=== PATIENT | female | born 1940 | race Caucasian/White ===

== ENCOUNTER 2024-11-16 12:54 | Outpatient (AMB) | payer MEDICARE, SELFPAY ==
[2024-11-16 13:06] VITALS: BP 131/76; PULSE 72; RESP 18; TEMP 36.5; O2SAT 95; BMI 30.8
--- NOTE | 2024-11-16 13:06 | GSCOFFNT_ITS ---
[facility]ital [facility] - [facility] 11/16/24 13:06 Height 1.52 m Height Method Stated Weight 71.242 kg Weight Measurement Method Standing Scale BMI 30.8 BP 131/76 H Blood Pressure Source Automatic Cuff Blood Pressure Location Left Upper Arm Position Sitting Respiration 18 Pulse 72 Pulse Source Monitor Temp 97.7 F Temp Source Temporal Artery Scan Pulse Oximetry (%) 95 Oxygen Delivery Method Room Air Med/Allergies Allergies & Medications Allergies NKA* Allergy (Uncoded 11/16/24 13:07) Medication Reconciliation celecoxib 200 mg capsule 200 mg PO QDAY 11/07/23 [History Confirmed 11/16/24] omeprazole 20 mg capsule,delayed release 20 mg PO QDAY 11/07/23 [History Confirmed 11/16/24] simvastatin 10 mg tablet 10 mg PO QDAY 11/07/23 [History Confirmed 11/16/24] MA Intake Visit Data Collection New Patient or Established: Established Patient (seen at [facility] within 3 years) Seen by Clinical Staff ONLY (RN/MA): No Reason for Visit:: HEMORRHOIDS Pain Present Currently: Yes Pain Location: Unable to identify PCP or OBGYN visit in last 3 months: Yes Hx Now: No Do You Feel Safe at Home: Yes Authorities Contacted: N/A Smoking Status Smoking Status: Never smoker Immunization / Flu Flu Vaccine in the Last 12 Months: Yes Flu Vaccine Exclusion Criteria: Already Received Past Medical History Social History SMOKING STATUS: Smoking status: Never smoker ALCOHOL: Alcohol Intake: Never HPI HPI Narrative 84F with HTN, HLD here for follow up of hemorrhoids. Pt was seen last year for the same but she preferred to hold off on surgery at the time; she is now thinking she would like to pursue surgery as she finds it difficult to keep the area clean. Pt states her BMs remain soft without any need for straining, she continues to drink plenty of water and takes metamucil regularly. She has minimal pain/discomfort and states that her last colonoscopy was 10 years ago and she was told she had two polyps PMH: HTN, HLD PSHx: Tonsillectomy Meds: Celecoxib, omeprazole, simvastatin Allergies: NKDA Family hx: No known malignancies ROS Review of Systems Systems Reviewed: All systems reviewed, normal except as documented Objective/Exam General General Appearance: alert, cooperative and well groomed Resp Respiratory exam: Absent respiratory distress Rectal Rectal exam: Present other (mild external hemorrhoids, RUBIO deferred) Assessment & Plan Diagnosis / Problem List (1) Hemorrhoids, external: Status: Acute Assessment & Plan: 84F with healthy bowel habits and longstanding symptomatic hemorrhoids. I explained that while surgery is by no means required it can help her symptoms and is reasonable to pursue in the setting of her healthy habits. I explained benefits/risks including severe pain, hemorrhoid persistence/recurrence, bleeding, infection and difficulty urinating. Additionally because of her h istory of polyps I offered colonoscopy and explained the benefits/risks including bleeding, perforation requiring emergency surgery and the possibility of needing to abort for safety. All questions were answered and pt is agreeable to proceeding, but she prefers not to take Golytely prep so I advised her that she can use miralax prep instead and provided instructions Plan: Screening colonoscopy, THD SatDecember 16 Advanced Care Planning Advance care planning discussed with:: patient Office Procedures GNS Level of Care Nursing/Assessment Patient Status: Established Patient Nursing Assessment/Reassesment: Medication Reconciliation, Update PMH in EMR and Vital Signs Coordination of Care: Complex Care and Chronic Disease 1-5, Consent,records obtained, informed consent, Education Simp Pt/Fam, Results/Orders obtained and Staff clarify orders Established Patient Charge Established Patient Point Assignment: 90 Established Patient Point Charge: EP Level 3 (80-115) Patient Portal Questionaires Social History Tobacco History Smoking Status: Never smoker Alcohol History Alcohol Intake: Never Domestic Abuse History Do You Feel Safe at Home: Yes Review of Systems Report any current symptoms Only answer those that you have currently: Past Medical History Past Medical History Have you ever been diagnosed with any of the following:
== END 2024-11-16 13:42 | disposition home or self-care (01) ==
LOC: HODSRG 12:54
PROVIDERS: PCP Student in an Organized Health Care Education/Training Program; Referring Provider Student in an Organized Health Care Education/Training Program; Supervising Provider Surgery; Visit Provider Surgery
DX: K64.4 Residual hemorrhoidal skin tags (principal); I10 Essential (primary) hypertension; E78.5 Hyperlipidemia, unspecified
CPT/HCPCS: 99213; G0463

== ENCOUNTER 2025-01-06 06:20 | Day surgery (SDC) | payer MEDICARE, SELFPAY ==
--- NOTE | 2025-01-05 06:45 | EKG_ITS ---
[facility] Test Date: 2025-01-05 Pat Name: CHRISTOPHER TANG Department: Room: - Gender: Female Regional Climate Change Analyst: JANKI : 1940 Requested By: Dawood Donald Order Number: [id number] Reading MD: Dawood Donald Measurements Intervals [place] Rate: 66 P: 31 [place]: 99 QRS: 35 QRSD: 86 T: 128 QT: 415 QTc: 435 Interpretive Statements SINUS RHYTHM WITH SHORT [place] INTERVAL NONSPECIFIC T-WAVE ABNORMALITY No previous ECG available for comparison /[id number]/S0/[id number].pdf
[2025-01-05 08:53] VITALS: BMI 29.6
[2025-01-05 09:38] LABS: Basophils % (Auto) 0 % (0-2.5); Eosinophils # (Auto) 0.3 Thou/mm3 (0.0-0.5); Eosinophils % (Auto) 3 % (0-10); Hematocrit 42.6 % (36.0-46.0); Hemoglobin 13.8 g/dL (12.0-16.0); Immature Granulocytes % (Auto) 0 % (0-0); Immature Granulocytes Auto 0.03 Thou/mm3 (0.00-0.00); Lymphocytes # (Auto) 3.2 Thou/mm3 (1.0-4.8); Lymphocytes % (Auto) 33 % (10-50); Mean Corpuscular HGB Conc 32.4 g/dl (31.0-37.0); Mean Corpuscular Hemoglobin 32.7 pg (25.0-35.0); Mean Corpuscular Volume 101 fL (80-100); Monocytes # (Auto) 0.8 Thou/mm3 (0.0-0.8); Monocytes % (Auto) 8 % (0-12); Neutrophils # (Auto) 5.5 Thou/mm3 (1.8-7.7); Neutrophils % (Auto) 56 % (37-80); Nucleated Red Blood Cell % 0 /100 WBC (0); Platelet Count 178 Thou/mm3 (140-440); RDW Standard Deviation 49.9 fL (36.4-46.3); Red Blood Count 4.22 Miln/mm3 (4.00-5.20); White Blood Count 9.8 Thou/mm3 (3.6-11.0)
[2025-01-05 09:59] LABS: Alanine Aminotransferase 15 U/L (10-49); Albumin, Serum 4.4 gm/dL (3.4-4.8); Albumin/Globulin Ratio 1.5 (1.2-2.2); Alkaline Phosphatase 92 U/L (46-116); Anion Gap 9 (7-16); BUN/Creatinine Ratio 14 Ratio (12-20); Bilirubin,Total 0.5 mg/dL (0.3-1.2); Blood Urea Nitrogen 11 mg/dL (9-23); Calcium 9.5 mg/dL (8.3-10.6); Calcium (Corrected) 9.5 mg/dL (8.5-10.1); Carbon Dioxide 29.4 mMol/L (20.0-31.0); Chloride 107 mMol/L (98-107); Creatinine (Component) 0.8 mg/dL (0.6-1.3); Estimated Creatinine Clearance 46.4 mL/min (>60); Globulin 2.9 gm/dL (2.3-3.5); Glucose 91 mg/dL (74-106); Osmolality,Calculated 288 (275-295); Potassium 4.6 mMol/L (3.4-5.1); Sodium 145 mMol/L (136-145); Total Protein 7.3 gm/dL (5.7-8.2); eGFR > 60 See Note
[2025-01-05 10:30] LABS: Partial Thromboplastin Time 26.8 Seconds (22.0-36.0); Prothrombin Time 10.7 Seconds (9.0-12.2)
--- NOTE | 2025-01-05 15:25 | SUR.PREOP ---
Pt notified to come in tomorrow at 0630.
[2025-01-06] VITALS (7 sets, daily range): BP systolic 142–177; BP diastolic 63–87; PULSE 59–90; RESP 12–18; TEMP 36.4–36.7; O2SAT 95–100; BMI 28.9
--- NOTE | 2025-01-06 10:58 | PD.SUROPNT ---
Date of Procedure 01/06/25 Pre Op Diagnosis Symptomatic hemorrhoids Post Op Diagnosis Same Procedure Transanal hemorrhoidal dearterialization Findings Internal hemorrhoids Procedure Description After discussion of risks and benefits, patient was brought to the operating room and after timeout she underwent colonoscopy which will be dictated separately. After colonoscopy patient was transferred to the OR bed, underwent general anesthesia, placed in lithotomy position with proper padding and was prepped and draped in the usual sterile fashion. Transanal hemorrhoidal dearterialization was undertaken at the 1, 3, 5, 7, 9 and 11:00 positions. At the 9 o'clock position there was redundant anal mucosal tissue which was pexied. Left and right pudendal nerve blocks were performed as well as a local block for total of 30 cc of half percent Marcaine. There were no signs of bleeding. Patient was returned to supine position and extubated without complication. She was brought to PACU in stable condition Pathology / specimen None Estimated Blood Loss 10 Surgeon Zaira Carranza MD Surgical Staff Operation Date: 01/06/25 08:45 Case Staff Anesthesiologist: Dawood Donald
--- NOTE | 2025-01-06 11:01 | SUR.PHASEI ---
1101 Patient arrived to recovery resting comfortably in [facility], on oxygen 4L via nasal cannula, breathing unlabored, vital signs stable, denies pain, dressing intact to buttock; abd, mesh underwear, no bleeding noted, denies nausea, report received from Jenna MADISON/Neil MADISON and Dr. Donald
--- NOTE | 2025-01-06 12:00 | SUR.PHASEII ---
1200 Patient meets discharge criteria from recovery, awake and alert, breathing unlabored, vital signs stable, denies pain, dressing intact; no bleeding noted, patient ate two jello's and drinking water; denies nausea, patient able to dress herself into her clothing, discharge instructions given to patient and patients friend, friend signed discharge instructions. Patient given all her belongings prior to discharge, transported via wheelchair and left in a private vehicle.
== END 2025-01-06 12:00 | disposition home or self-care (01) ==
PROVIDERS: Anesthesiology; PCP Student in an Organized Health Care Education/Training Program; Referring Provider Surgery; Visit Provider Surgery
PROC: (CPT 46948; principal; 2025-01-06 08:45)
PROC: 0DJD8ZZ Inspection of Lower Intestinal Tract, Via Natural or Artificial Opening Endoscopic (ICD-10-PCS; CPT 45378; 2025-01-06 08:45)
DX: K64.8 Other hemorrhoids (principal); Z01.810 Encounter for preprocedural cardiovascular examination; E78.5 Hyperlipidemia, unspecified; I10 Essential (primary) hypertension
CPT/HCPCS: 46948; 45378; 36415; 80053; 85025; 85610; 85730; 93005; A4217; A4649; J1100; J2704; J2765; J3010; J3490

== ENCOUNTER → 2025-01-19 | Outpatient (CLI) | payer MEDICARE, SELFPAY ==
--- NOTE | 2025-01-19 12:37 | XR_ITS ---
Examination: AP pelvis single view TECHNIQUE: AP portable supine pelvis single view Date and time: January 19, 2025, 1239 hours INDICATIONS: Right hip pain several years. FINDINGS: No right hip fracture or dislocation Moderate right hip osteoarthritis Mild left hip osteoarthritis Bones of the pelvis intact IMPRESSION: Moderate right hip osteoarthritis
--- NOTE | 2025-01-19 12:37 | XR_ITS ---
Examination: Lumbar spine, 5 views Technique: Lumbar spine AP, lateral, coned lateral lower lumbar spine, bilateral obliques 5 views Exam date and time: January 19, 2025 1239 hours Comparison May 08, 2022 INDICATIONS: Low back pain several years. FINDINGS: Lower lumbar dextroscoliosis 10 degrees Severe osteopenia Advanced diffuse facet arthropathy Chronic osteoporotic compression L1 T12 No acute lumbar fracture Advanced diffuse lumbar degenerative disc disease IMPRESSION: Advanced diffuse lumbar degenerative disc disease with significant spinal stenosis
== END | disposition home or self-care (01) ==
LOC: CDIM 12:25
PROVIDERS: PCP Family Medicine; Referring Provider Orthopaedic Surgery; Visit Provider Orthopaedic Surgery
DX: M16.11 Unilateral primary osteoarthritis, right hip (principal); M51.369 Other intervertebral disc degeneration, lumbar region without mention of lumbar back pain or lower extremity pain; M48.061 Spinal stenosis, lumbar region without neurogenic claudication
CPT/HCPCS: 72110; 72170

== ENCOUNTER 2025-01-25 08:52 | Outpatient (AMB) | payer MEDICARE, SELFPAY ==
[2025-01-25 09:08] VITALS: BP 129/73; PULSE 80; RESP 18; TEMP 36.3; O2SAT 96; BMI 29.8
--- NOTE | 2025-01-25 09:08 | PD.GSCLVISIT ---
Vital Signs - [facility] 01/25/25 09:08 Height 1.55 m Height Method Stated Weight 71.753 kg Weight Measurement Method Standing Scale BMI 29.8 BP 129/73 Blood Pressure Source Automatic Cuff Blood Pressure Location Left Upper Arm Position Sitting Respiration 18 Pulse 80 Pulse Source Monitor Temp 97.3 F Temp Source Temporal Artery Scan Pulse Oximetry (%) 96 Oxygen Delivery Method Room Air Med/Allergies Allergies & Medications Allergies No Known Allergies Allergy (Verified 01/25/25 09:09) Medication Reconciliation celecoxib 200 mg capsule 200 mg PO QDAY PRN pain 11/07/23 [History Confirmed 01/25/25] omeprazole 20 mg capsule,delayed release 20 mg PO QDAY 11/07/23 [History Confirmed 01/25/25] simvastatin 10 mg tablet 10 mg PO QDAY 11/07/23 [History Confirmed 01/25/25] cetirizine 10 mg tablet 10 mg PO DAILY PRN allergy symptoms 01/05/25 [History Confirmed 01/25/25] naproxen 250 mg tablet 250 mg PO BID PRN pain 01/05/25 [History Confirmed 01/25/25] docusate sodium 100 mg capsule (Colace) 100 mg PO QDAY PRN constipation #30 caps 01/06/25 [Rx Confirmed 01/25/25] oxycodone-acetaminophen 5 mg-325 mg tablet (Percocet) 1 tab PO Q4H PRN pain #30 tabs 01/06/25 [Rx Confirmed 01/25/25] MA Intake Visit Data Collection New Patient or Established: Established Patient (seen at [facility] within 3 years) Seen by Clinical Staff ONLY (RN/MA): No Reason for Visit:: FOLLOW UP COLONOSCOPY Pain Present Currently: No PCP or OBGYN visit in last 3 months: Yes Smoking Status Smoking Status: Former smoker Immunization / Flu Flu Vaccine in the Last 12 Months: No Flu Vaccine Exclusion Criteria: No Exclusion Criteria Past Medical History Past Medical History NEUROLOGIC: Negative Neurological Disorders or Seizures CARDIAC: Positive Cardiac Disorders and Congestive Heart Failure RESPIRATORY: Negative Chronic Obstructive Pulmonary Disease (COPD) GASTROINTESTINAL: Positive Gastrointestinal Disorders, Hemorrhoids and Gastroesophageal Reflux Disease; Negative Hepatitis GENITOURINARY: Negative Genitourinary Disorders or Renal Disease REPRODUCTIVE: Positive Previous Pregnancies (3) MUSCULOSKELETAL: Positive Fractures (left ribs) ENT: Positive Cataracts (bilateral) and Deafness (Bilateral hearing aids) ENDOCRINE: Negative Endocrine Disorders, Diabetes Mellitus Type 1 or Diabetes Mellitus Type 2 HEMATOLOGIC: Negative Blood Disorders OTHER HISTORY: Positive Chicken Pox and Measles; Negative Hospitalization, Autoimmune Disease, Shingles, Blood Transfusions, Blood Transfusion Reaction, Anesthesia Reactions or Cancer Family History FAMILY HISTORY: Positive Family Cancer; Negative Family Psychiatric Problems, Family Respiratory Disorders, Family Cardiac Disorders, Family Gastrointestinal Problems, Family Surgery or Family Anesthesia Reaction Surgical History SURGICAL: Positive Tonsillectomy Social History SMOKING STATUS: Smoking status: Former smoker ALCOHOL: Alcohol Intake: Current HOUSING: Housing: House HPI HPI Narrative 84F here for follow up of colonoscopy and THD performed 01/06/25. Colonoscopy was negative for polyps. Pt states she is still feeling some soreness in the perianal region, she takes pain medication before her activities and is still feeling some swelling as well as occasional bleeding. Pt is taking stool softeners and having regular BMs without any straining. She continues to take sitz baths daily ROS Review of Systems Systems Reviewed: All systems reviewed, normal except as documented Objective/Exam General General Appearance: alert, cooperative and well groomed Resp Respiratory exam: Absent respiratory distress Assessment & Plan Diagnosis / Problem List (1) Hemorrhoids, internal: Status: Acute Assessment & Plan: 84F s/p screening colonoscopy and THD 01/06/25, continuing to recover Plan: F/u in 4 weeks Advanced Care Planning Advance care planning discussed with:: patient Office Procedures GNS Level of Care Nursing/Assessment Patient Status: Established Patient Nursing Assessment/Reassesment: Medication Reconciliation, Update PMH in EMR and Vital Signs Coordination of Care: Complex Care and Chronic Disease 1-5, Consent,records obtained, informed consent, Education Simp Pt/Fam, Results/Orders obtained and Staff clarify orders Established Patient Charge Established Patient Point Assignment: 90 Established Patient Point Charge: EP Level 3 (80-115) Patient Portal Questionaires Social History Living Situation History Housing: House Tobacco History Smoking Status: Former smoker Alcohol History Alcohol Intake: Current Review of Systems Report any current symptoms Only answer those that you have currently: Past Medical History Past Medical History Have you ever been diagnosed with any of the following: Neurological Problems Seizures: No Cardiology Problems Congestive Heart Failure: Yes Respiratory Problems Chronic Obstructive Pulmonary Disease (COPD): No Stomache/Intestinal Problems Hepatitis: No Hemorrhoids: Yes Gastroesophageal Reflux Disease: Yes Genital/Urinary Problems Renal Disease: No Reproductive Problems Previous Pregnancies: Yes (3) Musculoskeletal Problems Fractures: Yes (left ribs) Head,Eye,Nose,Throat Problems Cataracts: Yes (bilateral) Deafness: Yes (Bilateral hearing aids) Endocrine Problems Diabetes Mellitus Type 1: No Diabetes Mellitus Type 2: No Other Problems Hospitalization: No Autoimmune Disease: No Shingles: No Blood Transfusions: No Blood Transfusion Reaction: No Anesthesia Reactions: No Chicken Pox: Yes Measles: Yes Cancer: No
== END 2025-01-25 09:35 | disposition home or self-care (01) ==
LOC: HODSRG 08:52
PROVIDERS: PCP Student in an Organized Health Care Education/Training Program; Referring Provider Student in an Organized Health Care Education/Training Program; Supervising Provider Surgery; Visit Provider Surgery
DX: Z48.815 Encounter for surgical aftercare following surgery on the digestive system (principal)
CPT/HCPCS: 99213; G0463

== ENCOUNTER → 2025-02-08 | Outpatient (CLI) | payer MEDICARE, SELFPAY ==
--- NOTE | 2025-02-08 11:41 | XR_ITS ---
Examination: PA lateral chest 2 views TECHNIQUE: Upright PA lateral chest 2 views Date and time: February 08, 2025, 11:56 PM Comparison April 28, 2024 INDICATIONS: Patient swallowed foreign body one week ago. FINDINGS: Normal heart size No pneumonia. No opaque foreign body depicted. Prominent osteopenia IMPRESSION: No opaque foreign body visualized
--- NOTE | 2025-02-08 11:44 | XR_ITS ---
Examination: Abdomen AP single view Technique: AP portable supine abdomen, single view Exam date and time: February 08, 2025 1151 hours INDICATIONS: Swallowed foreign body one week ago. FINDINGS: No opaque foreign body Thoracolumbar levoscoliosis 12 degrees No free air Nonobstructive bowel gas pattern IMPRESSION: No opaque foreign body visualized
== END | disposition home or self-care (01) ==
PROVIDERS: PCP Student in an Organized Health Care Education/Training Program
DX: Z03.821 Encounter for observation for suspected ingested foreign body ruled out (principal)
CPT/HCPCS: 71046; 74018

== ENCOUNTER → 2025-02-16 | Outpatient (CLI) | payer MEDICARE, SELFPAY ==
--- NOTE | 2025-02-16 13:56 | XR_ITS ---
Examination: Shoulder,right, 3 views Technique: Shoulder AP internal rotation, AP external rotation, Y view shoulder, 3 views Exam date and time :February 16, 2025 1426 hours INDICATIONS: Right shoulder pain beginning 6 months ago. FINDINGS: Moderate osteopenia. Moderate to advanced osteoarthritis glenohumeral joint No fracture Right shoulder calcific tendinitis IMPRESSION: Moderate to advanced osteoarthritis glenohumeral joint Right shoulder calcific tendinitis
== END | disposition home or self-care (01) ==
LOC: CDIM 13:49
PROVIDERS: PCP Registered Nurse Community Health; Referring Provider Orthopaedic Surgery; Visit Provider Orthopaedic Surgery
DX: M19.011 Primary osteoarthritis, right shoulder (principal); M75.31 Calcific tendinitis of right shoulder
CPT/HCPCS: 73030

== ENCOUNTER 2025-02-22 08:46 | Outpatient (AMB) | payer MEDICARE, SELFPAY ==
--- NOTE | 2025-02-22 08:59 | GSCOFFNT_ITS ---
Vital Signs - [facility] 02/22/25 09:05 Height 1.55 m Height Method Measured Weight 72.121 kg Weight Measurement Method Standing Scale BMI 30.0 BP 155/74 H Blood Pressure Source Automatic Cuff Blood Pressure Location Right Upper Arm Position Sitting Respiration 18 Pulse 73 Pulse Source Monitor Temp 97.8 F Temp Source Temporal Artery Scan Pulse Oximetry (%) 94 L Oxygen Delivery Method Room Air Med/Allergies Allergies & Medications Allergies No Known Allergies Allergy (Verified 02/22/25 09:06) Medication Reconciliation celecoxib 200 mg capsule 200 mg PO QDAY PRN pain 11/07/23 [History Confirmed 02/22/25] omeprazole 20 mg capsule,delayed release 20 mg PO QDAY 11/07/23 [History Confirmed 02/22/25] simvastatin 10 mg tablet 10 mg PO QDAY 11/07/23 [History Confirmed 02/22/25] cetirizine 10 mg tablet 10 mg PO DAILY PRN allergy symptoms 01/05/25 [History Confirmed 02/22/25] naproxen 250 mg tablet 250 mg PO BID PRN pain 01/05/25 [History Confirmed 02/22/25] docusate sodium 100 mg capsule (Colace) 100 mg PO QDAY PRN constipation #30 caps 01/06/25 [Rx Confirmed 02/22/25] oxycodone-acetaminophen 5 mg-325 mg tablet (Percocet) 1 tab PO Q4H PRN pain #30 tabs 01/06/25 [Rx Confirmed 02/22/25] oxycodone-acetaminophen 5 mg-325 mg tablet (Percocet) 1 tab PO Q4H PRN pain #30 tabs 01/28/25 [Rx Confirmed 02/22/25] hydrocortisone acetate 25 mg rectal suppository 25 mg LA QHS hemorrhoids #12 ea 02/22/25 [Rx] MA Intake Visit Data Collection New Patient or Established: Established Patient (seen at [facility] within 3 years) Seen by Clinical Staff ONLY (RN/DORA): No Reason for Visit:: F/U HEMMORROIDS Pain Present Currently: Yes Pain scale:: 4 Pain Scale Used: [employer]/Numerical Independent Living Instructor Required: No PCP or OBGYN visit in last 3 months: Yes Hx Now: No Do You Feel Safe at Home: Yes Authorities Contacted: N/A Smoking Status Smoking Status: Former smoker Immunization / Flu Flu Vaccine in the Last 12 Months: No Flu Vaccine Exclusion Criteria: No Exclusion Criteria Past Medical History Past Medical History NEUROLOGIC: Negative Neurological Disorders or Seizures CARDIAC: Positive Cardiac Disorders and Congestive Heart Failure RESPIRATORY: Negative Chronic Obstructive Pulmonary Disease (COPD) GASTROINTESTINAL: Positive Gastrointestinal Disorders, Hemorrhoids and Gastroesophageal Reflux Disease; Negative Hepatitis GENITOURINARY: Negative Genitourinary Disorders or Renal Disease REPRODUCTIVE: Positive Previous Pregnancies (3) MUSCULOSKELETAL: Positive Fractures (left ribs) ENT: Positive Cataracts (bilateral) and Deafness (Bilateral hearing aids) ENDOCRINE: Negative Endocrine Disorders, Diabetes Mellitus Type 1 or Diabetes Mellitus Type 2 HEMATOLOGIC: Negative Blood Disorders OTHER HISTORY: Positive Chicken Pox and Measles; Negative Hospitalization, Autoimmune Disease, Shingles, Blood Transfusions, Blood Transfusion Reaction, Anesthesia Reactions or Cancer Family History FAMILY HISTORY: Positive Family Cancer; Negative Family Psychiatric Problems, Family Respiratory Disorders, Family Cardiac Disorders, Family Gastrointestinal Problems, Family Surgery or Family Anesthesia Reaction Surgical History SURGICAL: Positive Tonsillectomy Social History SMOKING STATUS: Smoking status: Former smoker ALCOHOL: Alcohol Intake: Current HOUSING: Housing: House HPI HPI Narrative 84F here for follow up of colonoscopy and THD performed 01/06/25. Similarly to last visit pt states she still notices some swelling in the perianal region and occasional bleeding, despite having regular BMs without any straining. She is still using sitz baths regularly and has resumed her frequent line dancing but is somewhat disappointed that her symptoms have not fully resolved ROS Review of Systems Systems Reviewed: All systems reviewed, normal except as documented Objective/Exam General General Appearance: alert, cooperative and well groomed Resp Respiratory exam: Absent respiratory distress Assessment & Plan Diagnosis / Problem List (1) Hemorrhoids, internal: Status: Acute Assessment & Plan: 84F here for follow up of colonoscopy and THD performed 01/06/25, who has not had a full resolution of her symptoms despite maximizing her bowel regimen. I recommended anusol suppositories and will provide a GoodRx coupon as it is not covered by her insurance. I encouraged her to continue her same habits and will follow up in another 6 weeks Advanced Care Planning Advance care planning discussed with:: other Office Procedures GNS Level of Care Nursing/Assessment Patient Status: Established Patient Nursing Assessment/Reassesment: Medication Reconciliation, Update PMH in EMR and Vital Signs Coordination of Care: Complex Care and Chronic Disease 1-5, Consent,records obtained, informed consent, Education Simp Pt/Fam, Results/Orders obtained and Staff clarify orders Established Patient Charge Established Patient Point Assignment: 90 Established Patient Point Charge: EP Level 3 (80-115) Patient Portal Questionaires Social History Living Situation History Housing: House Tobacco History Smoking Status: Former smoker Alcohol History Alcohol Intake: Current Domestic Abuse History Do You Feel Safe at Home: Yes Review of Systems Report any current symptoms Only answer those that you have currently: Past Medical History Past Medical History Have you ever been diagnosed with any of the following: Neurological Problems Seizures: No Cardiology Problems Congestive Heart Failure: Yes Respiratory Problems Chronic Obstructive Pulmonary Disease (COPD): No Stomache/Intestinal Problems Hepatitis: No Hemorrhoids: Yes Gastroesophageal Reflux Disease: Yes Genital/Urinary Problems Renal Disease: No Reproductive Problems Previous Pregnancies: Yes (3) Musculoskeletal Problems Fractures: Yes (left ribs) Head,Eye,Nose,Throat Problems Cataracts: Yes (bilateral) Deafness: Yes (Bilateral hearing aids) Endocrine Problems Diabetes Mellitus Type 1: No Diabetes Mellitus Type 2: No Other Problems Hospitalization: No Autoimmune Disease: No Shingles: No Blood Transfusions: No Blood Transfusion Reaction: No Anesthesia Reactions: No Chicken Pox: Yes Measles: Yes Cancer: No
[2025-02-22 09:05] VITALS: BP 155/74; PULSE 73; RESP 18; TEMP 36.6; O2SAT 94
== END 2025-02-22 09:26 | disposition home or self-care (01) ==
LOC: HODSRG 08:46
PROVIDERS: PCP Family Medicine; Referring Provider Family Medicine; Supervising Provider Surgery; Visit Provider Surgery
DX: K64.8 Other hemorrhoids (principal)
CPT/HCPCS: 99213; G0463

== ENCOUNTER 2025-04-05 08:55 | Outpatient (AMB) | payer MEDICARE, SELFPAY ==
[2025-04-05 09:05] VITALS: BP 182/77; PULSE 78; RESP 16; TEMP 36.5; O2SAT 95; BMI 30.1
--- NOTE | 2025-04-05 09:05 | GSCOFFNT_ITS ---
[facility]s - [facility] 04/05/25 09:05 Height 1.55 m Height Method Measured Weight 72.291 kg Weight Measurement Method Standing Scale BMI 30.1 BP 182/77 H Blood Pressure Source Automatic Cuff Blood Pressure Location Left Upper Arm Position Sitting Respiration 16 Pulse 78 Pulse Source Monitor Temp 97.7 F Temp Source Temporal Artery Scan Pulse Oximetry (%) 95 Oxygen Delivery Method Room Air Med/Allergies Allergies & Medications Allergies No Known Allergies Allergy (Verified 04/05/25 09:07) Medication Reconciliation celecoxib 200 mg capsule 200 mg PO QDAY PRN pain 11/07/23 [History Confirmed 04/05/25] omeprazole 20 mg capsule,delayed release 20 mg PO QDAY 11/07/23 [History Confirmed 04/05/25] simvastatin 10 mg tablet 10 mg PO QDAY 11/07/23 [History Confirmed 04/05/25] cetirizine 10 mg tablet 10 mg PO DAILY PRN allergy symptoms 01/05/25 [History Confirmed 04/05/25] naproxen 250 mg tablet 250 mg PO BID PRN pain 01/05/25 [History Confirmed 04/05/25] docusate sodium 100 mg capsule (Colace) 100 mg PO QDAY PRN constipation #30 caps 01/06/25 [Rx Confirmed 04/05/25] oxycodone-acetaminophen 5 mg-325 mg tablet (Percocet) 1 tab PO Q4H PRN pain #30 tabs 01/06/25 [Rx Confirmed 04/05/25] oxycodone-acetaminophen 5 mg-325 mg tablet (Percocet) 1 tab PO Q4H PRN pain #30 tabs 01/28/25 [Rx Confirmed 04/05/25] hydrocortisone acetate 25 mg rectal suppository 25 mg HI QHS hemorrhoids #12 ea 02/22/25 [Rx Confirmed 04/05/25] MA Intake Visit Data Collection New Patient or Established: Established Patient (seen at [facility] within 3 years) Seen by Clinical Staff ONLY (RN/MA): No Reason for Visit:: FOLLOW UP Pain Present Currently: No Head Athletic Trainer/Strength Coach Required: No PCP or OBGYN visit in last 3 months: Yes Hx Now: No Do You Feel Safe at Home: Yes Authorities Contacted: N/A Smoking Status Smoking Status: Former smoker Immunization / Flu Flu Vaccine in the Last 12 Months: Yes Flu Vaccine Exclusion Criteria: Already Received Past Medical History Past Medical History NEUROLOGIC: Negative Neurological Disorders or Seizures CARDIAC: Positive Cardiac Disorders and Congestive Heart Failure RESPIRATORY: Negative Chronic Obstructive Pulmonary Disease (COPD) GASTROINTESTINAL: Positive Gastrointestinal Disorders, Hemorrhoids and Gastroesophageal Reflux Disease; Negative Hepatitis GENITOURINARY: Negative Genitourinary Disorders or Renal Disease REPRODUCTIVE: Positive Previous Pregnancies (3) MUSCULOSKELETAL: Positive Fractures (left ribs) ENT: Positive Cataracts (bilateral) and Deafness (Bilateral hearing aids) ENDOCRINE: Negative Endocrine Disorders, Diabetes Mellitus Type 1 or Diabetes Mellitus Type 2 HEMATOLOGIC: Negative Blood Disorders OTHER HISTORY: Positive Chicken Pox and Measles; Negative Hospitalization, Autoimmune Disease, Shingles, Blood Transfusions, Blood Transfusion Reaction, Anesthesia Reactions or Cancer Family History FAMILY HISTORY: Positive Family Cancer; Negative Family Psychiatric Problems, Family Respiratory Disorders, Family Cardiac Disorders, Family Gastrointestinal Problems, Family Surgery or Family Anesthesia Reaction Surgical History SURGICAL: Positive Tonsillectomy Social History SMOKING STATUS: Smoking status: Former smoker ALCOHOL: Alcohol Intake: Current HOUSING: Housing: House HPI HPI Narrative 84F here for follow up of colonoscopy and THD performed 01/06/25. Pt states that she is now having fecal incontinence which she never had before surgery, requiring her to wear pads. She has had leakage of stool and has also had urgency, now having to go soon after eating every meal. Pt continues to take metamucil once daily and is taking regular sitz baths as well as sometimes using anusol suppositories. Pt feels that her persistent hemorrhoid has caused the stool to remain trapped in the rectum which is what is leading to the episodes of incontinence. Pt does not use enemas and prefers not to ROS Review of Systems Systems Reviewed: All systems reviewed, normal except as documented Objective/Exam General General Appearance: alert, cooperative and well groomed Resp Respiratory exam: Absent respiratory distress Rectal Rectal exam: Present other (at the right posterior anus there is a hemorrhoid with internal and external components, it is soft without any bleeding. RUBIO normal and anoscopy showed stool in vault) Assessment & Plan Diagnosis / Problem List (1) Hemorrhoids, internal: Status: Acute Assessment & Plan: 84F here for follow up of colonoscopy and THD performed 01/06/25, with new fecal incontinence which pt feels is related to her persistent hemorrhoid. I advised pt that medical management is first line treatment for fecal incontinence and recommended she increase her metamucil intake from 1tbsp daily to 3 tbsp daily, and also mentioned the possibility of physical therapy for strengthening pelvic floor muscles (pt has given vaginally x3) but pt states she does kegel exercises on her own regularly. I recommended that we wait at least 6 months before considering another surgery and did offer the possibility of excisional hemorrhoidectomy as she has not had an optimal result for THD, but pt prefers not to wait much longer and also prefers to repeat THD given the more invasive nature of excision. Ultimately she agreed to follow up in 1 month (2) Hemorrhoids, external: Status: Acute Advanced Care Planning Advance care planning discussed with:: other Office Procedures GNS Level of Care Nursing/Assessment Patient Status: Established Patient Nursing Assessment/Reassesment: Medication Reconciliation, Update PMH in EMR and Vital Signs Coordination of Care: Complex Care and Chronic Disease 1-5, Consent,records obtained, informed consent, Education Simp Pt/Fam, Results/Orders obtained and Staff clarify orders Established Patient Charge Established Patient Point Assignment: 90 Established Patient Point Charge: EP Level 3 (80-115) Patient Portal Questionaires Social History Living Situation History Housing: House Tobacco History Smoking Status: Former smoker Alcohol History Alcohol Intake: Current Domestic Abuse History Do You Feel Safe at Home: Yes Review of Systems Report any current symptoms Only answer those that you have currently: Past Medical History Past Medical History Have you ever been diagnosed with any of the following: Neurological Problems Seizures: No Cardiology Problems Congestive Heart Failure: Yes Respiratory Problems Chronic Obstructive Pulmonary Disease (COPD): No Stomache/Intestinal Problems Hepatitis: No Hemorrhoids: Yes Gastroesophageal Reflux Disease: Yes Genital/Urinary Problems Renal Disease: No Reproductive Problems Previous Pregnancies: Yes (3) Musculoskeletal Problems Fractures: Yes (left ribs) Head,Eye,Nose,Throat Problems Cataracts: Yes (bilateral) Deafness: Yes (Bilateral hearing aids) Endocrine Problems Diabetes Mellitus Type 1: No Diabetes Mellitus Type 2: No Other Problems Hospitalization: No Autoimmune Disease: No Shingles: No Blood Transfusions: No Blood Transfusion Reaction: No Anesthesia Reactions: No Chicken Pox: Yes Measles: Yes Cancer: No
== END 2025-04-05 09:58 | disposition home or self-care (01) ==
LOC: HODSRG 08:55
PROVIDERS: PCP Registered Nurse Community Health; Referring Provider Registered Nurse Community Health; Supervising Provider Surgery; Visit Provider Surgery
DX: K64.8 Other hemorrhoids (principal); K64.4 Residual hemorrhoidal skin tags; R15.9 Full incontinence of feces; I50.9 Heart failure, unspecified; K21.9 Gastro-esophageal reflux disease without esophagitis
CPT/HCPCS: 99213; G0463

== ENCOUNTER 2025-05-03 09:15 | Outpatient (AMB) | payer MEDICARE, SELFPAY ==
--- NOTE | 2025-05-03 09:20 | PD.GSCLVISIT ---
Vital Signs - [facility] 05/03/25 09:23 Height 1.55 m Height Method Measured Weight 72.32 kg Weight Measurement Method Standing Scale BMI 30.1 BP 134/76 H Blood Pressure Source Automatic Cuff Blood Pressure Location Left Upper Arm Position Sitting Respiration 18 Pulse 67 Pulse Source Monitor Temp 97.2 F Temp Source Temporal Artery Scan Pulse Oximetry (%) 96 Oxygen Delivery Method Room Air Med/Allergies Allergies & Medications Allergies No Known Allergies Allergy (Verified 05/03/25 09:24) Medication Reconciliation celecoxib 200 mg capsule 200 mg PO QDAY PRN pain 11/07/23 [History Confirmed 05/03/25] omeprazole 20 mg capsule,delayed release 20 mg PO QDAY 11/07/23 [History Confirmed 05/03/25] simvastatin 10 mg tablet 10 mg PO QDAY 11/07/23 [History Confirmed 05/03/25] cetirizine 10 mg tablet 10 mg PO DAILY PRN allergy symptoms 01/05/25 [History Confirmed 05/03/25] naproxen 250 mg tablet 250 mg PO BID PRN pain 01/05/25 [History Confirmed 05/03/25] docusate sodium 100 mg capsule (Colace) 100 mg PO QDAY PRN constipation #30 caps 01/06/25 [Rx Confirmed 05/03/25] oxycodone-acetaminophen 5 mg-325 mg tablet (Percocet) 1 tab PO Q4H PRN pain #30 tabs 01/06/25 [Rx Confirmed 05/03/25] oxycodone-acetaminophen 5 mg-325 mg tablet (Percocet) 1 tab PO Q4H PRN pain #30 tabs 01/28/25 [Rx Confirmed 05/03/25] hydrocortisone acetate 25 mg rectal suppository 25 mg GA QHS hemorrhoids #12 ea 02/22/25 [Rx Confirmed 05/03/25] hydrocortisone acetate 25 mg rectal suppository 25 mg GA QHS #12 ea 05/03/25 [Rx] MA Intake Visit Data Collection New Patient or Established: Established Patient (seen at [facility] within 3 years) Seen by Clinical Staff ONLY (RN/MA): No Pain Present Currently: No Pain Scale Used: Keller-Doran/Numerical Supervisor Riprap Placing Required: No PCP or OBGYN visit in last 3 months: Yes Hx Now: No Do You Feel Safe at Home: Yes Authorities Contacted: N/A Smoking Status Smoking Status: Former smoker Immunization / Flu Flu Vaccine in the Last 12 Months: No Flu Vaccine Exclusion Criteria: Refused by Patient Past Medical History Past Medical History NEUROLOGIC: Negative Neurological Disorders or Seizures CARDIAC: Positive Cardiac Disorders and Congestive Heart Failure RESPIRATORY: Negative Chronic Obstructive Pulmonary Disease (COPD) GASTROINTESTINAL: Positive Gastrointestinal Disorders, Hemorrhoids and Gastroesophageal Reflux Disease; Negative Hepatitis GENITOURINARY: Negative Genitourinary Disorders or Renal Disease REPRODUCTIVE: Positive Previous Pregnancies (3) MUSCULOSKELETAL: Positive Fractures (left ribs) ENT: Positive Cataracts (bilateral) and Deafness (Bilateral hearing aids) ENDOCRINE: Negative Endocrine Disorders, Diabetes Mellitus Type 1 or Diabetes Mellitus Type 2 HEMATOLOGIC: Negative Blood Disorders OTHER HISTORY: Positive Chicken Pox and Measles; Negative Hospitalization, Autoimmune Disease, Shingles, Blood Transfusions, Blood Transfusion Reaction, Anesthesia Reactions or Cancer Family History FAMILY HISTORY: Positive Family Cancer; Negative Family Psychiatric Problems, Family Respiratory Disorders, Family Cardiac Disorders, Family Gastrointestinal Problems, Family Surgery or Family Anesthesia Reaction Surgical History SURGICAL: Positive Tonsillectomy Social History SMOKING STATUS: Smoking status: Former smoker ALCOHOL: Alcohol Intake: Current HOUSING: Housing: House [facility] Narrative HISTORY OF PRESENT ILLNESS I, Zaira Carranza, have obtained verbal consent from the patient, to be recorded during this encounter which may include, but not limited to, medical history, examination, treatment plans, and relevant health information.? Patient was informed that recording will be read and reviewed by myself before inclusion in the medical chart. The patient is here for a follow-up of THD completed 12/2024. She reports an improvement in her condition, although she still experiences frequent bowel movements, up to 2 times daily. She has resumed gym activities and exercises but notes that any delay in responding to the urge to defecate results in accidents. She is considering another procedure and wonders if it might help with her bowel issues. She now experiences 3 to 4 bowel movements daily, a change from her pre-surgery routine of one morning bowel movement. She describes a mild soreness but does not find it overly uncomfortable. She is not currently taking any pain medication. She has never used hydrocortisone cream or suppositories. ASSESSM ROS Review of Systems Systems Reviewed: All systems reviewed, normal except as documented Objective/Exam General General Appearance: alert, cooperative and well groomed Resp Respiratory exam: Absent respiratory distress Rectal Rectal exam: Present other (at the right posterior anus there is a prolapsed internal hemorrhoid with some irritation along with an external hemorrhoidal skin tag, minimally tender) Assessment & Plan Diagnosis / Problem List (1) Hemorrhoids, internal: Status: Acute Assessment & Plan: Persistent symptoms include increased bathroom urgency and occasional accidents if the urge is not immediately addressed. Examination revealed a swollen and tender area on the right side, with the internal part of the hemorrhoid also prominent. The scar tissue from the previous surgery might be contributing to the symptoms. The earliest possible date for another surgery would be early May 2025, but the patient prefers to wait until after the beginning of the year to decide on further surgical intervention. A prescription for hydrocortisone suppositories was provided, with instructions to use them for up to 6 weeks, either before bedtime or after using the bathroom. Risks and benefits of the suppositories were discussed, including their potential to help shrink the hemorrhoid tissue and the fact that they are not intended for long-term use. The patient was advised to contact the office if any assistance is needed. Plan: F/u in 3 months per pt preference GoodRx coupon provided for the suppositories which are not reimbursed by her insurance (2) Hemorrhoids, external: Status: Acute Advanced Care Planning Advance care planning discussed with:: other Office Procedures GNS Level of Care Nursing/Assessment Patient Status: Established Patient Nursing Assessment/Reassesment: Medication Reconciliation, Update PMH in EMR and Vital Signs Coordination of Care: Complex Care and Chronic Disease 1-5, Education Complex Pt/Fam, Consent,records obtained, informed consent, Results/Orders obtained and Staff clarify orders Established Patient Charge Established Patient Point Assignment: 95 Established Patient Point Charge: EP Level 3 (80-115) Patient Portal Questionaires Social History Living Situation History Housing: House Tobacco History Smoking Status: Former smoker Alcohol History Alcohol Intake: Current Domestic Abuse History Do You Feel Safe at Home: Yes Review of Systems Report any current symptoms Only answer those that you have currently: Past Medical History Past Medical History Have you ever been diagnosed with any of the following: Neurological Problems Seizures: No Cardiology Problems Congestive Heart Failure: Yes Respiratory Problems Chronic Obstructive Pulmonary Disease (COPD): No Stomache/Intestinal Problems Hepatitis: No Hemorrhoids: Yes Gastroesophageal Reflux Disease: Yes Genital/Urinary Problems Renal Disease: No Reproductive Problems Previous Pregnancies: Yes (3) Musculoskeletal Problems Fractures: Yes (left ribs) Head,Eye,Nose,Throat Problems Cataracts: Yes (bilateral) Deafness: Yes (Bilateral hearing aids) Endocrine Problems Diabetes Mellitus Type 1: No Diabetes Mellitus Type 2: No Other Problems Hospitalization: No Autoimmune Disease: No Shingles: No Blood Transfusions: No Blood Transfusion Reaction: No Anesthesia Reactions: No Chicken Pox: Yes Measles: Yes Cancer: No
[2025-05-03 09:23] VITALS: BP 134/76; PULSE 67; RESP 18; TEMP 36.2; O2SAT 96; BMI 30.1
== END 2025-05-03 09:50 | disposition home or self-care (01) ==
LOC: HODSRG 09:15
PROVIDERS: PCP Registered Nurse Community Health; Referring Provider Registered Nurse Community Health; Supervising Provider Surgery; Visit Provider Surgery
DX: K64.8 Other hemorrhoids (principal); K64.4 Residual hemorrhoidal skin tags
CPT/HCPCS: 99213; G0463